=== PATIENT | male | born 1990 | race Caucasian/White ===

== ENCOUNTER 2016-11-09 10:20 | Emergency (ER) | payer OTHER ==
[~2016-11-09] VITALS: Ht 193 cm; Wt 152.0 kg
[~2016-11-09 10:20] MED LIST: FAMO-63 PO; ONDA4TAB10 SL
[2016-11-09 10:24] VITALS: BP 137/81
[2016-11-09] MEDS ORDERED: IBUPROFEN 800 MG TABLET. PO ONE (10:45)
--- NOTE | 2016-11-09 10:57 | EKG ---
[facility] [address] [place] [address] Test Date: 2016-11-09 Test Time: 10:27:19 Pat Name: TIERRA COREA Department: Room: Gender: M Rn Perioperative: : 1990 Requested By: JEROD MORLEY Order Number: [id number] Reading MD: Becca Mckeon Measurements Intervals [place] Rate: 64 P: 23 OR: 142 QRS: 9 QRSD: 102 T: -4 QT: 376 QTc: 392 Interpretive Statements SINUS RHYTHM NORMAL EKG Electronically Signed On 11-09-2016 19:46:49 CDT by Becca Mckeon
[2016-11-09 11:13] LABS: BASO # 0.1 x10^3/uL (0.0-0.2); BASO % 1 % (0-3); EOS % 6 % (0-3); HEMATOCRIT 44.6 % (39.0-53.0); HEMOGLOBIN 14.4 g/dL (13.0-17.5); LYMPH # 3.3 x10^3/uL (1.0-4.8); LYMPH % 41 % (24-48); MEAN CORPUSCULAR HEMOGLOBIN 29 pg (25-35); MEAN CORPUSCULAR HGB CONC 32 g/dL (31-37); MEAN CORPUSCULAR VOLUME 89 fL (79-100); MONO % 12 % (0-9); NEUT % 41 % (31-73); PLATELET COUNT 344 x10^3/uL (140-400); RED BLOOD COUNT 5.01 x10^6/uL (4.30-5.70); RED CELL DISTRIBUTION WIDTH 12.9 % (11.5-14.5); WHITE BLOOD COUNT 8.1 x10^3/uL (4.0-11.0)
[2016-11-09 11:23] LABS: CREATININE 0.9 mg/dL (0.7-1.3); GFR 102.8; POTASSIUM 4.2 mmol/L (3.5-5.1)
--- NOTE | 2016-11-09 11:27 | PHYS DOC ---
Past Medical History Past Medical History: No Pertinent History Additional Past Medical Histor: Lumbar Fx with bulging disc Past Surgical History: Other Additional Past Surgical Histo: left rotator cuff Alcohol Use: None Drug Use: None Adult General Chief Complaint Chief Complaint: CHEST PAIN HPI HPI Patient is a 26 year old male presents to the emergency department by POV with c/o left upper chest pain sharp in nature with pressure noted in the shoulder. Patient states the pain started at 0930 he states he was at work when the pain occurred. He denies Hx of HTN, denies any cardiac history, he denies SOA, diaphoresis. He states he did become nauseated but did not vomit. He denies drug use, or smoking hx. He does state their is a faimly hx of grandpa having SD at the age of 50. He states he took a tylenol 500 mg without relief. Review of Systems Review of Systems Constitutional: Denies fever or chills [] Eyes: Denies change in visual acuity, redness, or eye pain [] HENT: Denies nasal congestion or sore throat [] Respiratory: Denies cough or shortness of breath [] Cardiovascular: No additional information not addressed in HPI [] GI: Denies abdominal pain, nausea, vomiting, bloody stools or diarrhea [] : Denies dysuria or hematuria [] Musculoskeletal: Denies back pain or joint pain [] Integument: Denies rash or skin lesions [] Neurologic: Denies headache, focal weakness or sensory changes [] Endocrine: Denies polyuria or polydipsia [] Current Medications Current Medications Current Medications Medications (Trade) Dose Ordered Sig/[facility] Start Time Stop Time Status Last Admin Dose Admin Ibuprofen (Motrin) 800 mg 1X ONCE 11/09/16 10:45 11/09/16 10:46 DC 11/09/16 11:16 800 MG Allergies Allergies Allergies Coded Allergies Type Severity Reaction Last Updated Verified No Known Drug Allergies 01/22/15 No Physical Exam Physical Exam Constitutional: Well developed, well nourished, no acute distress, non-toxic appearance. [] HENT: Normocephalic, atraumatic, bilateral external ears normal, oropharynx moist, no oral exudates, nose normal. [] Eyes: PERRLA, EOMI, conjunctiva normal, no discharge. [] Neck: Normal range of motion, no tenderness, supple, no stridor. [] Cardiovascular:Heart rate regular rhythm, no murmur [] Lungs & Thorax: Bilateral breath sounds clear to auscultation [] Abdomen: Bowel sounds hypoactive, soft, no tenderness, no masses, no pulsatile masses. [] Skin: Warm, dry, no erythema, no rash. [] Back: No tenderness Extremities: No tenderness, no cyanosis, no clubbing, ROM intact, no edema. [] Neurologic: Alert and oriented X 3, normal motor function, normal sensory function, no focal deficits noted. [] Psychologic: Affect normal, judgement normal, mood normal. [] Current Patient Data Vital Signs Vital Signs Date Time Temp Pulse Resp B/P (MAP) Pulse Ox O2 Delivery O2 Flow Rate FiO2 11/09/16 10:24 98.8 68 18 137/81 (99) 98 Room Air 98.8 Lab Values Laboratory Tests Test 11/09/16 11:00 White Blood Count 8.1 x10^3/uL (4.0-11.0) Red Blood Count 5.01 x10^6/uL (4.30-5.70) Hemoglobin 14.4 g/dL (13.0-17.5) Hematocrit 44.6 % (39.0-53.0) Mean Corpuscular Volume 89 fL (79-100) Mean Corpuscular Hemoglobin 29 pg (25-35) Mean Corpuscular Hemoglobin Concent 32 g/dL (31-37) Red Cell Distribution Width 12.9 % (11.5-14.5) Platelet Count 344 x10^3/uL (140-400) Neutrophils (%) (Auto) 41 % (31-73) Lymphocytes (%) (Auto) 41 % (24-48) Monocytes (%) (Auto) 12 % (0-9) H Eosinophils (%) (Auto) 6 % (0-3) H Basophils (%) (Auto) 1 % (0-3) Neutrophils # (Auto) 3.3 x10^3uL (1.8-7.7) Lymphocytes # (Auto) 3.3 x10^3/uL (1.0-4.8) Monocytes # (Auto) 1.0 x10^3/uL (0.0-1.1) Eosinophils # (Auto) 0.5 x10^3/uL (0.0-0.7) Basophils # (Auto) 0.1 x10^3/uL (0.0-0.2) Sodium Level 141 mmol/L (136-145) Potassium Level 4.2 mmol/L (3.5-5.1) Chloride Level 105 mmol/L (98-107) Carbon Dioxide Level 31 mmol/L (21-32) Anion Gap 5 (6-14) L Blood Urea Nitrogen 10 mg/dL (8-26) Creatinine 0.9 mg/dL (0.7-1.3) Estimated GFR (Cockcroft-Gault) 102.8 BUN/Creatinine Ratio 11 (6-20) Glucose Level 99 mg/dL (70-99) Calcium Level 9.0 mg/dL (8.5-10.1) Total Bilirubin 0.5 mg/dL (0.2-1.0) Aspartate Amino Transferase (AST) 29 U/L (15-37) Alanine Aminotransferase (ALT) 58 U/L (16-63) Alkaline Phosphatase 95 U/L (46-116) Troponin I Quantitative < 0.017 ng/mL (0.000-0.055) Total Protein 7.6 g/dL (6.4-8.2) Albumin 3.8 g/dL (3.4-5.0) Albumin/Globulin Ratio 1.0 (1.0-1.7) Laboratory Tests 11/09/16 11:00 Laboratory Tests 11/09/16 11:00 EKG EKG [] Radiology/Procedures Radiology/Procedures [][facility] [address] [place] [address] IMAGING REPORT Signed PATIENT: TIERRA COREA ACCOUNT: [id number] : 1990 LOCATION: ER AGE: 26 SEX: M EXAM STATUS: REG ER ORD. PHYSICIAN: JEROD MORLEY APRN REASON: chest pain left upper chest PROCEDURE: PORTABLE CHEST 1V Indication chest pain. A single view of the chest was obtained and is compared to an examination over 10 years earlier. Heart size and pulmonary vessels are normal. The lungs are clear. No acute or significant finding is seen. IMPRESSION: Normal single view of the chest DICTATED and SIGNED BY: DAVID JENSEN MD DATE: 11/09/16 1157 CC: JEROD MORLEY APRN; GERMAN NARVAEZ; NON,STAFF ~ Course & Med Decision Making Course & Med Decision Making Pertinent Labs and Imaging studies reviewed. (See chart for details) CBC, CMP, troponin, chest x-ray are all within normal limits. Patient was provided with test results. He'll be discharged home in stable condition with recommendations for ibuprofen 800 mg every 8 hours for pain and discomfort. He may also use warm moist pack to the chest wall area. Patient will be encouraged follow-up with primary care physician in the next week. Signs symptoms to return back to emergency department as been provided. Patient agrees with discharge instructions treatment regimens and follow-up recommendations. [] Dragon Disclaimer Dragon Disclaimer This electronic medical record was generated, in whole or in part, using a voice recognition dictation system. Departure Departure Impression: Primary Impression: Chest wall pain Disposition: HOME, SELF-CARE Condition: STABLE Referrals: GERMAN NARVAEZ (PCP) Patient Instructions: Chest Wall Pain, [id number] Additional Instructions: You have been evaluated for left upper chest wall pain. Your lab results were all within normal limits her chest x-ray was normal. Ibuprofen 800 mg every 8 hours with food stop taking few develop an upset stomach. Warm moist packs to the left upper chest wall area several times a day. Follow-up to primary care physician in one week. Return back to emergency prior signs symptoms of become worse. JEROD MORLEY APRN Nov 09, 2016 11:27
[2016-11-09 11:29] LABS: ALBUMIN 3.8 g/dL (3.4-5.0); TOTAL BILIRUBIN 0.5 mg/dL (0.2-1.0); TOTAL PROTEIN 7.6 g/dL (6.4-8.2)
--- NOTE | 2016-11-09 12:00 | RAD ---
Indication chest pain. A single view of the chest was obtained and is compared to an examination over 10 years earlier. Heart size and pulmonary vessels are normal. The lungs are clear. No acute or significant finding is seen. IMPRESSION: Normal single view of the chest
== END 2016-11-09 13:03 | disposition home or self-care (01) ==
LOC: ER 10:20
DX: R07.89 Other chest pain (principal); R11.0 Nausea
CPT/HCPCS: 36415; 71010; 80053; 84484; 85027; 93005; 99285-25

== ENCOUNTER 2018-08-29 11:59 | Emergency (ER) | payer OTHER ==
[~2018-08-29] VITALS: Ht 193 cm; Wt 167.8 kg
[2018-08-29 12:44] LABS: BILIRUBIN,URINE NEGATIVE (NEG); CLARITY,URINE CLEAR; COLOR,URINE YELLOW; NITRITE,URINE NEGATIVE (NEG); PH,URINE 6.5; PROTEIN,URINE NEGATIVE (NEG-TRACE)
[2018-08-29 12:47] LABS: BARBITURATES NEG (NEG); BENZODIAZEPINES NEG (NEG); CANNABINOIDS NEG (NEG); COCAINE NEG (NEG); METHADONE NEG (NEG); OPIATES NEG (NEG); PHENCYCLIDINE NEG (NEG)
[2018-08-29 12:48] LABS: BASO % 1 % (0-3); EOS # 0.4 x10^3/uL (0.0-0.7); EOS % 5 % (0-3); HEMATOCRIT 45.6 % (39.0-53.0); HEMOGLOBIN 14.7 g/dL (13.0-17.5); LYMPH # 3.3 x10^3/uL (1.0-4.8); LYMPH % 46 % (24-48); MEAN CORPUSCULAR HEMOGLOBIN 28 pg (25-35); MEAN CORPUSCULAR HGB CONC 32 g/dL (31-37); MEAN CORPUSCULAR VOLUME 87 fL (79-100); MONO # 0.7 x10^3/uL (0.0-1.1); MONO % 10 % (0-9); NEUT # 2.9 x10^3uL (1.8-7.7); NEUT % 39 % (31-73); PLATELET COUNT 376 x10^3/uL (140-400); RED BLOOD COUNT 5.25 x10^6/uL (4.30-5.70); RED CELL DISTRIBUTION WIDTH 13.2 % (11.5-14.5); WHITE BLOOD COUNT 7.3 x10^3/uL (4.0-11.0)
[2018-08-29 12:58] LABS: SQUAMOUS EPITHELIAL CELL,UR FEW /LPF
[2018-08-29 12:59] LABS: BACTERIA,URINE 0 /HPF (0-FEW)
[2018-08-29] MEDS ORDERED: ONDANSETRON PF 4 MG/2 ML VIAL. IV ONE (13:00)
[2018-08-29 13:03] LABS: CALCIUM 9.5 mg/dL (8.5-10.1); CREATININE 0.9 mg/dL (0.7-1.3); GFR 101.2; POTASSIUM 4.1 mmol/L (3.5-5.1)
[2018-08-29 13:08] LABS: ALBUMIN 3.8 g/dL (3.4-5.0); ALBUMIN/GLOBULIN RATIO 1.1 (1.0-1.7); TOTAL BILIRUBIN 0.6 mg/dL (0.2-1.0); TOTAL PROTEIN 7.4 g/dL (6.4-8.2)
[2018-08-29 13:11] LABS: AMPHETAMINE/METHAMPHETAMINE NEG (NEG)
[2018-08-29] MEDS ORDERED: KETOROLAC 30 MG/ML VIAL. IV ONE (13:15)
[2018-08-29] MEDS ORDERED: IV NORMAL SALINE 1000ML BAG 1,000 ML IV ONE (13:15)
--- NOTE | 2018-08-29 13:40 | RAD ---
CT HEAD WO CONTRAST History: dizzy Comparison: None. Technique: Noncontrast CT imaging was performed of the head. Exposure: One or more of the following individualized dose reduction techniques were utilized for this examination: 1. Automated exposure control 2. Adjustment of the mA and/or kV according to patient size 3. Use of iterative reconstruction technique. Findings: No acute extra-axial or parenchymal hemorrhage is identified. There is no significant intra-axial mass effect, midline shift, or extra-axial fluid collection. The dale-white differentiation of the major vascular territories is preserved. The ventricles, sulci, and cisterns are within normal limits in size and configuration. The mastoid air cells and the visualized paranasal sinuses are aerated. No acute calvarial abnormality is identified. Impression: 1. No acute intracranial abnormality is identified. Electronically signed by: Noe Moran MD (08/29/2018 1:37 PM) [facility]
[2018-08-29 14:04] LABS: INFLUENZA A PATIENT NEGATIVE (NEGATIVE); INFLUENZA B PATIENT NEGATIVE (NEGATIVE)
[2018-08-29 14:30] VITALS: BP 154/89
[2018-08-29] MEDS ORDERED: cefTRIAXone IV Push 1 GM VIAL. IVP ONE (14:30)
[2018-08-29] MEDS ORDERED: AMOX875T PO (14:41)
[2018-08-29] MEDS ORDERED: TRAM50TA PO (14:42)
--- NOTE | 2018-08-29 14:43 | PHYS DOC ---
Past Medical History Past Medical History: Other Additional Past Medical Histor: Lumbar Fx with bulging disc Past Surgical History: Other Additional Past Surgical Histo: left rotator cuff Alcohol Use: None Drug Use: None Adult General Chief Complaint Chief Complaint: DIZZY/LIGHT HEADED HPI HPI Patient is a 28 year old male who presents with multiple complaints. He states he has dental pain, headache and now chest pain. He denies this being the worst headache of his life. He has not seen a dentist. Review of Systems Review of Systems Constitutional: Denies fever or chills [] Eyes: Denies change in visual acuity, redness, or eye pain [] HENT: See HPI Respiratory: Denies cough or shortness of breath [] Cardiovascular: No additional information not addressed in HPI [] GI: Denies abdominal pain, nausea, vomiting, bloody stools or diarrhea [] : Denies dysuria or hematuria [] Musculoskeletal: Denies back pain or joint pain [] Integument: Denies rash or skin lesions [] Neurologic: See HPI Endocrine: Denies polyuria or polydipsia [] All other systems were reviewed and found to be within normal limits, except as documented in this note. Current Medications Current Medications Current Medications Medications (Trade) Dose Ordered Sig/[facility] Start Time Stop Time Status Last Admin Dose Admin Ceftriaxone Sodium (Rocephin) 1 gm 1X ONCE 08/29/18 14:30 08/29/18 14:31 DC 08/29/18 14:47 1 GM Ketorolac Tromethamine (Toradol 30mg Vial) 30 mg 1X ONCE 08/29/18 13:15 08/29/18 13:16 DC 08/29/18 13:20 30 MG Ondansetron HCl (Zofran) 4 mg 1X ONCE 08/29/18 13:00 08/29/18 13:01 DC 08/29/18 12:57 4 MG Sodium Chloride 1,000 ml @ 1,000 mls/hr 1X ONCE 08/29/18 13:15 08/29/18 14:14 DC 08/29/18 13:19 1,000 MLS/HR Allergies Allergies Allergies Coded Allergies Type Severity Reaction Last Updated Verified No Known Drug Allergies 01/22/15 No Physical Exam Physical Exam Constitutional: Well developed, well nourished, no acute distress, non-toxic appearance. [] HENT: Normocephalic, atraumatic, bilateral external ears normal, oropharynx moist, no oral exudates, nose normal. [] Eyes: PERRLA, EOMI, conjunctiva normal, no discharge. [] Neck: Normal range of motion, no tenderness, supple, no stridor. [] Cardiovascular:Heart rate regular rhythm, no murmur [] Lungs & Thorax: Bilateral breath sounds clear to auscultation [] Abdomen: Bowel sounds normal, soft, no tenderness, no masses, no pulsatile masses. [] Skin: Warm, dry, no erythema, no rash. [] Back: No tenderness, no CVA tenderness. [] Extremities: No tenderness, no cyanosis, no clubbing, ROM intact, no edema. [] Neurologic: Alert and oriented X 3, normal motor function, normal sensory function, no focal deficits noted. [] Psychologic: Affect normal, judgement normal, mood normal. [] Current Patient Data Vital Signs Lab Values Laboratory Tests Test 08/29/18 12:28 08/29/18 12:37 08/29/18 13:15 08/29/18 13:21 Urine Collection Type Unknown Urine Color Yellow Urine Clarity Clear Urine pH 6.5 Urine Specific [place] 1.015 Urine Protein Negative mg/dL (NEG-TRACE) Urine Glucose (UA) Negative mg/dL (NEG) Urine Ketones (Stick) Negative mg/dL (NEG) Urine Blood Trace (NEG) Urine Nitrite Negative (NEG) Urine Bilirubin Negative (NEG) Urine Urobilinogen Dipstick 1.0 mg/dL (0.2 mg/dL) Urine Leukocyte Esterase Negative (NEG) Urine RBC 3-5 /HPF (0-2) Urine WBC 1-4 /HPF (0-4) Urine Squamous Epithelial Cells Few /LPF Urine Bacteria 0 /HPF (0-FEW) Urine Mucus Slight /LPF Urine Opiates Screen Neg (NEG) Urine Methadone Screen Neg (NEG) Urine Barbiturates Neg (NEG) Urine Phencyclidine Screen Neg (NEG) Urine Amphetamine/Methamphetamine Neg (NEG) Urine Benzodiazepines Screen Neg (NEG) Urine Cocaine Screen Neg (NEG) Urine Cannabinoids Screen Neg (NEG) Urine Ethyl Alcohol Neg (NEG) White Blood Count 7.3 x10^3/uL (4.0-11.0) Red Blood Count 5.25 x10^6/uL (4.30-5.70) Hemoglobin 14.7 g/dL (13.0-17.5) Hematocrit 45.6 % (39.0-53.0) Mean Corpuscular Volume 87 fL (79-100) Mean Corpuscular Hemoglobin 28 pg (25-35) Mean Corpuscular Hemoglobin Concent 32 g/dL (31-37) Red Cell Distribution Width 13.2 % (11.5-14.5) Platelet Count 376 x10^3/uL (140-400) Neutrophils (%) (Auto) 39 % (31-73) Lymphocytes (%) (Auto) 46 % (24-48) Monocytes (%) (Auto) 10 % (0-9) H Eosinophils (%) (Auto) 5 % (0-3) H Basophils (%) (Auto) 1 % (0-3) Neutrophils # (Auto) 2.9 x10^3uL (1.8-7.7) Lymphocytes # (Auto) 3.3 x10^3/uL (1.0-4.8) Monocytes # (Auto) 0.7 x10^3/uL (0.0-1.1) Eosinophils # (Auto) 0.4 x10^3/uL (0.0-0.7) Basophils # (Auto) 0.0 x10^3/uL (0.0-0.2) Sodium Level 140 mmol/L (136-145) Potassium Level 4.1 mmol/L (3.5-5.1) Chloride Level 102 mmol/L (98-107) Carbon Dioxide Level 30 mmol/L (21-32) Anion Gap 8 (6-14) Blood Urea Nitrogen 10 mg/dL (8-26) Creatinine 0.9 mg/dL (0.7-1.3) Estimated GFR (Cockcroft-Gault) 101.2 BUN/Creatinine Ratio 11 (6-20) Glucose Level 109 mg/dL (70-99) H Calcium Level 9.5 mg/dL (8.5-10.1) Total Bilirubin 0.6 mg/dL (0.2-1.0) Aspartate Amino Transferase (AST) 23 U/L (15-37) Alanine Aminotransferase (ALT) 42 U/L (16-63) Alkaline Phosphatase 99 U/L (46-116) Total Protein 7.4 g/dL (6.4-8.2) Albumin 3.8 g/dL (3.4-5.0) Albumin/Globulin Ratio 1.1 (1.0-1.7) Influenza Type A Antigen Negative (NEGATIVE) Influenza Type B Antigen Negative (NEGATIVE) Group A Streptococcus Rapid Negative (NEGATIVE) Laboratory Tests 08/29/18 12:37 Laboratory Tests 08/29/18 12:37 Microbiology 08/29/18 Throat Culture - Final, Complete 08/29/18 - Final, Complete EKG EKG [] Radiology/Procedures Radiology/Procedures []PATIENT: TIERRA COREAACCOUNT: [id number]#: [id number] : 1990 LOCATION: ER AGE: 28 SEX: M EXAM STATUS: PRE ER ORD. PHYSICIAN: KHADAR RIVERA APRN REASON: dizzy PROCEDURE: CT HEAD WO CONTRAST CT HEAD WO CONTRAST History: dizzy Comparison: None. Technique: Noncontrast CT imaging was performed of the head. Exposure: One or more of the following individualized dose reduction techniques were utilized for this examination: 1. Automated exposure control 2. Adjustment of the mA and/or kV according to patient size 3. Use of iterative reconstruction technique. Findings: No acute extra-axial or parenchymal hemorrhage is identified. There is no significant intra-axial mass effect, midline shift, or extra-axial fluid collection. The dale-white differentiation of the major vascular territories is preserved. The ventricles, sulci, and cisterns are within normal limits in size and configuration. The mastoid air cells and the visualized paranasal sinuses are aerated. No acute calvarial abnormality is identified. Impression: 1. No acute intracranial abnormality is identified. Electronically signed by: Huber Reno MD (08/29/2018 1:37 PM) [facility] DICTATED and SIGNED BY: HUBER RENO MD DATE: 08/29/18 2254 Course & Med Decision Making Course & Med Decision Making Pertinent Labs and Imaging studies reviewed. (See chart for details) []The patient's CT and labwork was negative for acute causes of his symptoms. He needs to follow up with a dentist. Dragon Disclaimer Dragon Disclaimer This electronic medical record was generated, in whole or in part, using a voice recognition dictation system. Departure Departure Impression: Primary Impression: Dental infection Additional Impression: Headache Disposition: 01 HOME, SELF-CARE Condition: STABLE Referrals: GERMAN NARVAEZ (PCP) Patient Instructions: Dental Caries, General Headache Without Cause Additional Instructions: Take the medication as directed. Follow-up with your dentist at an earliest available appointment. If worsening return to the emergency department immediately. Scripts Tramadol Hcl (TRAMADOL HCL) 50 Mg Tablet 50 MG PO DAILY PRN for PAIN, #10 TAB 0 Refills Prov: KHADAR RIVERA APRN 08/29/18 Amoxicillin (AMOXICILLIN) 875 Mg Tablet 1 TAB PO BID for dental infection, #20 TAB Prov: KHADAR RIVERA APRN 08/29/18 Problem Qualifiers KHADAR RIVERA APRN Aug 29, 2018 14:43
--- NOTE | 2018-08-30 09:39 | EKG ---
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
== END 2018-08-29 14:45 | disposition home or self-care (01) ==
LOC: ER 11:59
DX: R51 Headache (principal); K04.7 Periapical abscess without sinus; R42 Dizziness and giddiness
CPT/HCPCS: 36415; 70450; 80053; 80307; 81001; 85025; 87070; 87804; 87880; 93005; 96361; 96374; 96375; 99284; J0696; J1885; J2405; J7030

== ENCOUNTER 2018-10-17 16:49 | Emergency (ER) | payer OTHER, SELFPAY ==
[~2018-10-17] VITALS: Ht 195.6 cm; Wt 166.5 kg
[~2018-10-17 16:49] MED LIST changes: +AMOX875T PO; +TRAM50TA PO
[2018-10-17] MEDS ORDERED: IV NORMAL SALINE 1000ML BAG 1,000 ML IV SCH (17:25)
[2018-10-17] MEDS ORDERED: ONDANSETRON PF 4 MG/2 ML VIAL. IV ONE (17:30)
[2018-10-17] MEDS ORDERED: KETOROLAC 30 MG/ML VIAL. IV ONE (17:30)
--- NOTE | 2018-10-17 17:36 | PHYS DOC ---
Past Medical History Past Medical History: Other Additional Past Medical Histor: Lumbar Fx with bulging disc, MENINGITIS (ELIDA ZARATE MD) Past Surgical History: Other Additional Past Surgical Histo: left rotator cuff (ELIDA ZARATE MD) Alcohol Use: None Drug Use: None (ELIDA ZARATE MD) Adult General Chief Complaint Chief Complaint: DIZZY/LIGHT HEADED HPI HPI Patient is a 28 year old male who presents with complaining of dizziness and vomiting and headache and generalized weakness. Patient complaining of sudden onset of generalized weakness and dizziness 3 hours ago with 8 episodes of nonbloody vomiting and generalized abdominal pain. Patient also complaining of bilateral frontal headache without neck pain, fever and chills, chest pain, shortness of breath, diarrhea and constipation, urinary symptoms, sick contact, focal neuro deficit, recent urinary symptom, tinnitus or ear problems. Patient states he had the same problem about 1 month ago when he was in this emergency room. (ELIDA ZARATE MD) Review of Systems Review of Systems Constitutional: Denies fever or chills [] Eyes: Denies change in visual acuity, redness, or eye pain [] HENT: Denies nasal congestion or sore throat [] Respiratory: Denies cough or shortness of breath [] Cardiovascular: No additional information not addressed in HPI [] GI: Reports abdominal pain, nausea, vomiting, denies bloody stools or diarrhea [] : Denies dysuria or hematuria [] Musculoskeletal: Denies back pain or joint pain [] Integument: Denies rash or skin lesions [] Neurologic: Reports generalized weakness, dizziness, headache, denies focal weakness or sensory changes [] Endocrine: Denies polyuria or polydipsia [] All other systems were reviewed and found to be within normal limits, except as documented in this note. (ELIDA ZARATE MD) Current Medications Current Medications Current Medications Medications (Trade) Dose Ordered Sig/Dinorah Start Time Stop Time Status Last Admin Dose Admin Ketorolac Tromethamine (Toradol 30mg Vial) 30 mg 1X ONCE 10/17/18 17:30 10/17/18 17:31 DC 10/17/18 17:54 30 MG Ondansetron HCl (Zofran) 4 mg 1X ONCE 10/17/18 17:30 5/18/19 17:31 DC 10/17/18 17:53 4 MG Sodium Chloride 1,000 ml @ 1,000 mls/hr Q1H 10/17/18 17:25 10/17/18 18:24 DC 10/17/18 17:46 1,000 MLS/HR (OMID LESTER DO) Allergies Allergies Allergies Coded Allergies Type Severity Reaction Last Updated Verified No Known Drug Allergies 01/22/15 No (OMID LESTER DO) Physical Exam Physical Exam Constitutional: Well nourished, mild distress, non-toxic appearance, morbidly obese. [] HENT: Normocephalic, atraumatic, oropharynx dry, no oral exudates, nose normal. [] Eyes: PERRLA, EOMI, conjunctiva normal, no discharge. [] Neck: Normal range of motion, no tenderness, supple, no stridor 1 no neck rigidity or meningeal sign. [] Cardiovascular:Heart rate regular rhythm, no murmur [] Lungs & Thorax: Bilateral breath sounds clear to auscultation [] Abdomen: Bowel sounds normal, soft, no tenderness, no masses, no pulsatile masses. [] Skin: Warm, dry, no erythema, no rash. [] Back: No tenderness, no CVA tenderness. [] Extremities: No tenderness, no cyanosis, no clubbing, ROM intact, no edema. [] Neurologic: Alert and oriented X 3, normal motor function, normal sensory function, no focal deficits noted. [] Psychologic: Affect normal, judgement normal, mood normal. [] (ELIDA ZARATE MD) Physical Exam Constitutional: Well nourished, non-toxic appearance, obese. [] Eyes: PERRL, EOMI, conjunctiva normal, no discharge. [] Neck: Normal range of motion, no tenderness, supple, no meningeal signs Cardiovascular: Heart rate normal with regular rhythm Lungs & Thorax: Bilateral breath sounds clear to auscultation [] Abdomen: Soft, mild epigastric and RUQ tenderness Neurologic: Alert and oriented X 3, normal motor function, normal sensory function, no focal deficits noted. [] (OMID LESTER DO) Current Patient Data Vital Signs Vital Signs Date Time Temp Pulse Resp B/P (MAP) Pulse Ox O2 Delivery O2 Flow Rate FiO2 10/17/18 17:10 98.4 66 16 144/75 (98) 96 Room Air 98.4 (LESTER,[facility] DO) Lab Values Laboratory Tests Test 10/17/18 17:02 10/17/18 17:40 10/17/18 19:13 Glucose (Fingerstick) 94 mg/dL (70-99) White Blood Count 8.9 x10^3/uL (4.0-11.0) Red Blood Count 5.10 x10^6/uL (4.30-5.70) Hemoglobin 14.4 g/dL (13.0-17.5) Hematocrit 44.8 % (39.0-53.0) Mean Corpuscular Volume 88 fL (79-100) Mean Corpuscular Hemoglobin 28 pg (25-35) Mean Corpuscular Hemoglobin Concent 32 g/dL (31-37) Red Cell Distribution Width 13.1 % (11.5-14.5) Platelet Count 341 x10^3/uL (140-400) Neutrophils (%) (Auto) 62 % (31-73) Lymphocytes (%) (Auto) 23 % (24-48) L Monocytes (%) (Auto) 10 % (0-9) H Eosinophils (%) (Auto) 5 % (0-3) H Basophils (%) (Auto) 1 % (0-3) Neutrophils # (Auto) 5.6 x10^3uL (1.8-7.7) Lymphocytes # (Auto) 2.0 x10^3/uL (1.0-4.8) Monocytes # (Auto) 0.9 x10^3/uL (0.0-1.1) Eosinophils # (Auto) 0.4 x10^3/uL (0.0-0.7) Basophils # (Auto) 0.0 x10^3/uL (0.0-0.2) PTT 30 SEC (24-38) Sodium Level 139 mmol/L (136-145) Potassium Level 4.3 mmol/L (3.5-5.1) Chloride Level 103 mmol/L (98-107) Carbon Dioxide Level 27 mmol/L (21-32) Anion Gap 9 (6-14) Blood Urea Nitrogen 13 mg/dL (8-26) Creatinine 1.1 mg/dL (0.7-1.3) Estimated GFR (Cockcroft-Gault) 80.3 BUN/Creatinine Ratio 12 (6-20) Glucose Level 124 mg/dL (70-99) H Lactic Acid Level 1.5 mmol/L (0.4-2.0) Calcium Level 9.4 mg/dL (8.5-10.1) Total Bilirubin 0.5 mg/dL (0.2-1.0) Aspartate Amino Transferase (AST) 26 U/L (15-37) Alanine Aminotransferase (ALT) 41 U/L (16-63) Alkaline Phosphatase 100 U/L (46-116) Creatine Kinase 209 U/L (39-308) Troponin I Quantitative < 0.017 ng/mL (0.000-0.055) Total Protein 8.0 g/dL (6.4-8.2) Albumin 3.9 g/dL (3.4-5.0) Albumin/Globulin Ratio 1.0 (1.0-1.7) Lipase 42 U/L (73-393) L Ethyl Alcohol Level < 10 mg/dL (0-10) Urine Collection Type Unknown Urine Color Yellow Urine Clarity Clear Urine pH 7.0 Urine Specific [place] 1.015 Urine Protein Negative mg/dL (NEG-TRACE) Urine Glucose (UA) Negative mg/dL (NEG) Urine Ketones (Stick) Negative mg/dL (NEG) Urine Blood Negative (NEG) Urine Nitrite Negative (NEG) Urine Bilirubin Negative (NEG) Urine Urobilinogen Dipstick 1.0 mg/dL (0.2 mg/dL) Urine Leukocyte Esterase Negative (NEG) Urine RBC Occ /HPF (0-2) Urine WBC 0 /HPF (0-4) Urine Squamous Epithelial Cells Occ /LPF Urine Bacteria 0 /HPF (0-FEW) Urine Opiates Screen Neg (NEG) Urine Methadone Screen Neg (NEG) Urine Barbiturates Neg (NEG) Urine Phencyclidine Screen Neg (NEG) Urine Amphetamine/Methamphetamine Neg (NEG) Urine Benzodiazepines Screen Neg (NEG) Urine Cocaine Screen Neg (NEG) Urine Cannabinoids Screen Neg (NEG) Urine Ethyl Alcohol Neg (NEG) Laboratory Tests 10/17/18 17:40 Laboratory Tests 10/17/18 17:40 (OMID LESTER DO) EKG EKG EKG interpreted by me. EKG at 1704 showed normal sinus rhythm at rate of 65, normal VT and QT intervals, poor R-wave progress in anteroseptal leads, no acute ST and T-wave abnormalities. (ELIDA ZARATE MD) Radiology/Procedures Radiology/Procedures [] (ELIDA ZARATE MD) Radiology/Procedures PROCEDURE: ABDOMEN COMPLETE INDICATION : Abdomen pain, vomiting and weakness COMPARISON: None TECHNIQUE: Multiple ultrasound images obtained through the abdomen in grayscale and color. FINDINGS: Liver: Prominent in size. Portions not well seen secondary to overlying structures. Echogenic appearance. Gallbladder: Only a portion seen with a portion wall at upper limits of normal in size. Definite stones not seen but regions are obscured and not well evaluated. IVC: Largely obscured by bowel gas Common Bile Duct: Not dilated. Pancreas: Largely obscured by bowel gas Right Kidney: Poorly seen secondary to overlying structures obscuring The spleen is largely obscured. Left kidney is not well evaluated. IMPRESSION: 1. Limited examination secondary to obscuration from overlying soft tissues. Liver appears echogenic. Can be seen with fatty infiltration. Large portions the liver are not seen on this exam. Electronically signed by: Antwon Stephenson MD (10/17/2018 6:32 PM) [facility] (OMID LESTER DO) Course & Med Decision Making Course & Med Decision Making Pertinent Labs and Imaging studies are pending. Evaluation of patient in ER showed 28-year-old male patient with complaining of sudden onset of dizziness, generalized weakness, headache, multiple episodes of nonbloody vomiting and abdominal pain. Patient did not have meningeal sign. Labs and ultrasound of gallbladder is pending. Sign out given to at 1800 for further evaluation and final disposition. Discussed current findings and plan with patient and family, who acknowledge understanding and agreement. (ELIDA ZARATE MD) Course & Med Decision Making 1800- Sign out received from Dr. Zarate for patient with multiple complaints. Symptomatic treatment previously provided. Labs reviewed. US without acute sign of cholelithiasis or right hydronephrosis. Patient seen and evaluated by myself. Patient stable for discharge with outpatient follow-up with PCP. Discussed findings and plan with patient and family, who acknowledge understanding and agreement. (OMID LESTER DO) Dragon Disclaimer Dragon Disclaimer This electronic medical record was generated, in whole or in part, using a voice recognition dictation system. (ELIDA ZARATE MD) Departure Departure Impression: Primary Impression: Nausea and vomiting Additional Impressions: Weakness Abdominal pain Headache Disposition: 01 HOME, SELF-CARE Condition: STABLE Referrals: GERMAN NARVAEZ (PCP) CHARO GONZALEZ MD Patient Instructions: Abdominal Pain (Nonspecific), Headache, FAQs, Nausea and Vomiting, Eagp-hl-[id number] Scripts Butalb/Acetaminophen/Caffeine ([id number] 50-325-40) 1 Each Tablet 1 EACH PO Q6HRS PRN for HEADACHE, #14 TAB Prov: OMID LESTER DO 10/17/18 Hyoscyamine Sulfate (LEVSIN-SL) 0.125 Mg Tab.subl 1 TAB SL PRN Q4HRS PRN for PAIN, #20 TAB Prov: OMID LESTER DO 10/17/18 Ondansetron (ONDANSETRON ODT) 4 Mg Tab.rapdis 1 TAB PO PRN Q6-8HRS PRN for NAUSEA, #16 TAB Prov: OMID LESTER DO 10/17/18 Famotidine (PEPCID) 20 Mg Tablet 20 MG PO BID, #14 TAB Prov: OMID LESTER DO 10/17/18 Problem Qualifiers Primary Impression: Nausea and vomiting Vomiting type: unspecified Vomiting Intractability: unspecified Qualified Codes: R11.2 - Nausea with vomiting, unspecified Additional Impressions: Abdominal pain Abdominal location: right upper quadrant Qualified Codes: R10.11 - Right upper quadrant pain Headache Headache type: unspecified Headache chronicity pattern: acute headache Intractability: not intractable Qualified Codes: R51 - Headache ELIDA ZARATE MD October 17, 2018 17:36 OMID LESTER DO October 17, 2018 18:45
[2018-10-17 18:02] LABS: BASO % 1 % (0-3); EOS # 0.4 x10^3/uL (0.0-0.7); EOS % 5 % (0-3); HEMATOCRIT 44.8 % (39.0-53.0); HEMOGLOBIN 14.4 g/dL (13.0-17.5); LYMPH % 23 % (24-48); MEAN CORPUSCULAR HEMOGLOBIN 28 pg (25-35); MEAN CORPUSCULAR HGB CONC 32 g/dL (31-37); MEAN CORPUSCULAR VOLUME 88 fL (79-100); MONO # 0.9 x10^3/uL (0.0-1.1); MONO % 10 % (0-9); NEUT # 5.6 x10^3uL (1.8-7.7); NEUT % 62 % (31-73); PLATELET COUNT 341 x10^3/uL (140-400); RED CELL DISTRIBUTION WIDTH 13.1 % (11.5-14.5); WHITE BLOOD COUNT 8.9 x10^3/uL (4.0-11.0)
[2018-10-17 18:14] LABS: CALCIUM 9.4 mg/dL (8.5-10.1); CREATININE 1.1 mg/dL (0.7-1.3); GFR 80.3; POTASSIUM 4.3 mmol/L (3.5-5.1)
[2018-10-17 18:28] LABS: ALBUMIN 3.9 g/dL (3.4-5.0); TOTAL BILIRUBIN 0.5 mg/dL (0.2-1.0)
--- NOTE | 2018-10-17 18:34 | RAD ---
INDICATION : Abdomen pain, vomiting and weakness COMPARISON: None TECHNIQUE: Multiple ultrasound images obtained through the abdomen in grayscale and color. FINDINGS: Liver: Prominent in size. Portions not well seen secondary to overlying structures. Echogenic appearance. Gallbladder: Only a portion seen with a portion wall at upper limits of normal in size. Definite stones not seen but regions are obscured and not well evaluated. IVC: Largely obscured by bowel gas Common Bile Duct: Not dilated. Pancreas: Largely obscured by bowel gas Right Kidney: Poorly seen secondary to overlying structures obscuring The spleen is largely obscured. Left kidney is not well evaluated. IMPRESSION: 1. Limited examination secondary to obscuration from overlying soft tissues. Liver appears echogenic. Can be seen with fatty infiltration. Large portions the liver are not seen on this exam. Electronically signed by: Antwon Stephenson MD (10/17/2018 6:32 PM) [facility]
[2018-10-17] MEDS ORDERED: FAMO-63 PO (18:43)
[2018-10-17] MEDS ORDERED: HYOS0.1265 SL (18:43)
[2018-10-17] MEDS ORDERED: BUTA1TAB23 PO (18:43)
[2018-10-17] MEDS ORDERED: ONDA4TAB12 PO (18:43)
[2018-10-17 19:23] LABS: BILIRUBIN,URINE NEGATIVE (NEG); CLARITY,URINE CLEAR; COLOR,URINE YELLOW; NITRITE,URINE NEGATIVE (NEG); PROTEIN,URINE NEGATIVE (NEG-TRACE)
[2018-10-17 19:28] LABS: RBC,URINE OCC /HPF (0-2)
[2018-10-17 19:29] LABS: BACTERIA,URINE 0 /HPF (0-FEW); BARBITURATES NEG (NEG); BENZODIAZEPINES NEG (NEG); CANNABINOIDS NEG (NEG); COCAINE NEG (NEG); METHADONE NEG (NEG); OPIATES NEG (NEG); PHENCYCLIDINE NEG (NEG); SQUAMOUS EPITHELIAL CELL,UR OCC /LPF; WBC,URINE 0 /HPF (0-4)
[2018-10-17 19:30] LABS: AMPHETAMINE/METHAMPHETAMINE NEG (NEG)
[2018-10-17 20:02] VITALS: BP 155/93
--- NOTE | 2018-10-18 11:13 | EKG ---
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
== END 2018-10-17 20:10 | disposition home or self-care (01) ==
LOC: ER 16:49
DX: R11.2 Nausea with vomiting, unspecified (principal); R42 Dizziness and giddiness; R51 Headache; R53.1 Weakness; R10.84 Generalized abdominal pain
CPT/HCPCS: 36415; 76700; 80053; 80307; 81001; 82550; 82962; 83605; 83690; 84484; 85025; 85730; 93005; 96361; 96374; 96375; 99285; G0480; J1885; J2405; J7030

== ENCOUNTER 2018-10-25 15:29 | Emergency (ER) | payer SELFPAY ==
[~2018-10-25] VITALS: Ht 195.6 cm; Wt 168.3 kg
[~2018-10-25 15:29] MED LIST changes: +BUTA1TAB23 PO; +HYOS0.1265 SL; +ONDA4TAB12 PO
[2018-10-25 15:35] VITALS: BP 162/94
[2018-10-25] MEDS ORDERED: ACETAMINOPHEN 500 MG TABLET PO ONE (16:00)
[2018-10-25] MEDS ORDERED: PENICILLIN G BENZATHINE LA 1,200,000 UNIT/2 ML DISP.SYRIN. IM ONE (16:00)
[2018-10-25] MEDS ORDERED: predniSONE 10 MG TABLET PO ONE (16:00)
[2018-10-25] MEDS ORDERED: PRED50TA PO (16:56)
--- NOTE | 2018-10-25 16:56 | PHYS DOC ---
Past Medical History Past Medical History: Other Additional Past Medical Histor: Lumbar Fx with bulging disc, MENINGITIS Past Surgical History: Other Additional Past Surgical Histo: left rotator cuff Alcohol Use: None Drug Use: None Adult General Chief Complaint Chief Complaint: SORE THROAT HPI HPI 28-year-old male presents to ER via POV for complaints of sore throat. He reports he feels similar to last week when he was evaluated in the ER and had labs/tests done. He reports his appetite has still been decreased but has been able to drink without any nausea or vomiting. He reports he has felt feverish denies checking his temperature. Reports over the past couple of days his sore throat has worsened. Patient denies difficulty swallowing. He reports he has had intermittent chest pain for quite some time and was evaluated last week for that denies acute change in symptoms. Patient denies any [id number]-[id number] medications today reporting he did take ibuprofen yesterday. Review of Systems Review of Systems Constitutional: Reports feeling feverish- denies fever. Eyes: Denies change in visual acuity, redness, or eye pain [] HENT: Denies nasal congestion. Reports sore throat- denies difficulty swallowing Respiratory: Denies cough or shortness of breath [] Cardiovascular: No additional information not addressed in HPI [] GI: Denies abdominal pain, nausea, vomiting, bloody stools or diarrhea [] : Denies dysuria or hematuria [] Musculoskeletal: Denies back pain or joint pain [] Integument: Denies rash or skin lesions [] Neurologic: Denies headache, focal weakness or sensory changes. Denies dizziness Endocrine: Denies polyuria or polydipsia [] All other systems were reviewed and found to be within normal limits, except as documented in this note. Current Medications Current Medications Current Medications Medications (Trade) Dose Ordered Sig/Dinorah Start Time Stop Time Status Last Admin Dose Admin Acetaminophen (Tylenol) 1,000 mg 1X ONCE 10/25/18 16:00 10/25/18 16:01 DC 10/25/18 16:11 1,000 MG Penicillin G Benzathine (Bicillin L-A) 1,200,000 unit 1X ONCE 10/25/18 16:00 10/25/18 16:01 DC 10/25/18 16:13 1,200,000 UNIT Prednisone (Prednisone) 50 mg 1X ONCE 10/25/18 16:00 10/25/18 16:01 DC 10/25/18 16:11 50 MG Allergies Allergies Allergies Coded Allergies Type Severity Reaction Last Updated Verified No Known Drug Allergies 01/22/15 No Physical Exam Physical Exam Constitutional: Well developed, well nourished, no acute distress, non-toxic appearance. [] HENT: Normocephalic, atraumatic, bilateral ears normal, mucous membranes pink/dry- bilat. tonsillar swelling/erythema/exudate- no peritonsillar abscess- uvula midline, nose normal. No pooling of secretions Eyes: PERRLA, no nystagmus, conjunctiva normal, no discharge. [] Neck: Normal range of motion, no tenderness, supple, no stridor/gross adenopathy Cardiovascular: Heart rate regular rhythm, no murmur [] Lungs & Thorax: Bilateral breath sounds clear to auscultation. Resp. equal/nonlabored Abdomen: Bowel sounds normal, soft/obese, no tenderness Skin: Warm, dry, no erythema, no rash. [] Back: No tenderness, no CVA tenderness. [] Extremities: No tenderness, no cyanosis, no clubbing, ROM intact, no edema. [] Neurologic: Alert and oriented X 3, normal motor function, normal sensory function, no focal deficits noted. [] Psychologic: Affect normal, judgement normal, mood anxious- no uncontrollable behavior Current Patient Data Vital Signs Vital Signs Date Time Temp Pulse Resp B/P (MAP) Pulse Ox O2 Delivery O2 Flow Rate FiO2 10/25/18 17:04 99 Room Air 10/25/18 15:35 99.8 85 18 162/94 (116) 99.8 EKG EKG EKG obtained 10/25/18 at [address] Chapin Sinus rhythm Nonspec. ST-T abnorm Rate 79 No STEMI Radiology/Procedures Radiology/Procedures [] Course & Med Decision Making Course & Med Decision Making Patient was evaluated for complaints of sore throat and on exam had bilateral tonsillar swelling and exudate. No strep test done- which patient was comfortable with and patient was treated with IM Bicillin LA. Patient reports with ongoing symptoms after being evaluated in the ER last week he has been anxious and reports he has been googling symptoms which made him nervous. Patient states he has had some chest tightness when he was anxious so EKG was obtained when no acute findings for ST elevation or STEMI. Patient had full workup last week with labs, abd US and EKG as well and was discharged with no acute findings during that evaluation. Discussed strep throat and plans for home discharge. Patient was provided with dose of prednisone and Tylenol while in the ER and advised on increasing fluid intake and use of yeih-ubc-[id number] medications for symptomatic treatment.Education provided on signs and symptoms to return to ER. Discharge instructions were discussed. Patient to follow-up with primary care physician if symptoms persist or with any concerns. [] Dragon Disclaimer Dragon Disclaimer This electronic medical record was generated, in whole or in part, using a voice recognition dictation system. Departure Departure Impression: Primary Impression: Headache Additional Impression: Strep throat Disposition: HOME, SELF-CARE Condition: STABLE Referrals: GERMAN NARVAEZ (PCP) Patient Instructions: Headache, FAQs, Strep Throat Additional Instructions: Drink plenty of water and eat well-balanced meals. Tylenol and/or ibuprofen as needed for pain and fever control. Follow-up with your primary care physician in 2-3 days for reevaluation sooner with any concerns. You were treated with penicillin while in the ER for your strep throat. Scripts Prednisone (PREDNISONE) 50 Mg Tablet 1 TAB PO DAILY, #4 TAB 0 Refills Start on 10/26/18 Prov: FLO CAMACHO APRN 10/25/18 Problem Qualifiers FLO CAMACHO APRN October 25, 2018 16:56
--- NOTE | 2018-10-26 12:38 | EKG ---
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
== END 2018-10-25 17:04 | disposition home or self-care (01) ==
LOC: ER 15:29
DX: J02.0 Streptococcal pharyngitis (principal); R51 Headache; B95.5 Unspecified streptococcus as the cause of diseases classified elsewhere; R07.89 Other chest pain
CPT/HCPCS: 93005; 96372; 99283; J0561; J7512

== ENCOUNTER 2018-11-23 18:03 | Emergency (ER) | payer SELFPAY ==
[~2018-11-23] VITALS: Ht 195.6 cm; Wt 170.1 kg
[~2018-11-23 18:03] MED LIST changes: +PRED50TA PO
[2018-11-23 18:16] VITALS: BP 154/103
[2018-11-23] MEDS ORDERED: AMOX875T PO (19:07)
--- NOTE | 2018-11-23 19:07 | PHYS DOC ---
Past Medical History Past Medical History: Other Additional Past Medical Histor: Lumbar Fx with bulging disc, MENINGITIS Past Surgical History: Other Additional Past Surgical Histo: left rotator cuff Alcohol Use: None Drug Use: None Adult General Chief Complaint Chief Complaint: SORE THROAT HPI HPI Patient is a 28 year old male who presents with a sore throat and ear pain that began today. Patient describes the ear pain is mild and pressure-like. Denies any coughing or congestion. States head strep infection last month and was given a Bicillin injection. Review of Systems Review of Systems Constitutional: Denies fever or chills [] Eyes: Denies change in visual acuity, redness, or eye pain [] HENT: Reports bilateral ear pain and sore throat. Denies nasal congestion Respiratory: Denies cough or shortness of breath [] Cardiovascular: No additional information not addressed in HPI [] GI: Denies abdominal pain, nausea, vomiting, bloody stools or diarrhea [] : Denies dysuria or hematuria [] Musculoskeletal: Denies back pain or joint pain [] Integument: Denies rash or skin lesions [] Neurologic: Denies headache, focal weakness or sensory changes [] All other systems were reviewed and found to be within normal limits, except as documented in this note. Allergies Allergies Allergies Coded Allergies Type Severity Reaction Last Updated Verified No Known Drug Allergies 01/22/15 No Physical Exam Physical Exam Constitutional: Well developed, well nourished, no acute distress, non-toxic appearance. [] HENT: Normocephalic, atraumatic, bilateral external ears normal, oropharynx moist, no oral exudates, nose normal. [] Bilateral TM are mildly injected. Posterior pharynx with mild erythema worse on the right side with exudate on the right side. Eyes: PERRLA, EOMI, conjunctiva normal, no discharge. [] Neck: Normal range of motion, no tenderness, supple, no stridor. [] Cardiovascular:Heart rate regular rhythm, no murmur [] Lungs & Thorax: Bilateral breath sounds clear to auscultation [] Abdomen: Bowel sounds normal, soft, no tenderness, no masses, no pulsatile masses. [] Skin: Warm, dry, no erythema, no rash. [] Back: No tenderness, no CVA tenderness. [] Extremities: No tenderness, no cyanosis, no clubbing, ROM intact, no edema. [] Neurologic: Alert and oriented X 3, normal motor function, normal sensory function, no focal deficits noted. [] Psychologic: Affect normal, judgement normal, mood normal. [] Current Patient Data Vital Signs Vital Signs Date Time Temp Pulse Resp B/P (MAP) Pulse Ox O2 Delivery O2 Flow Rate FiO2 11/23/18 18:16 98.5 98 18 154/103 (120) 98 Room Air 98.5 EKG EKG [] Radiology/Procedures Radiology/Procedures [] Course & Med Decision Making Course & Med Decision Making Pertinent Labs and Imaging studies reviewed. (See chart for details) This is a 28 year old presenting today with ear pain and sore throat. Positive rapid strep. Discharged on amoxicillin. Off note he was treated with Bicillin last month for strep. Tylenol/Motrin for pain or fever. Saltwater gargles recommended. Dragon Disclaimer Dragon Disclaimer This electronic medical record was generated, in whole or in part, using a voice recognition dictation system. Departure Departure Impression: Primary Impression: Otitis media Additional Impression: Strep throat Disposition: HOME, SELF-CARE Condition: STABLE Referrals: GERMAN NARVAEZ (PCP) follow up in 1-2 weeks DIMITRY TALBERT MD follow up in 1-2 weeks Patient Instructions: Otitis Media, Adult, Wnuf-[id number], Strep Throat Additional Instructions: You have strep infection and ear infection. We put you on antibiotics, ensure you take them to completion. Please follow-up with ENT provided in the next 2 weeks as needed. Use saltwater gargles as needed. Take Tylenol Motrin for pain or fever. Scripts Amoxicillin (AMOXICILLIN) 875 Mg Tablet 1 TAB PO BID, #20 TAB Prov: KERRI ABREU APRN 11/23/18 Problem Qualifiers Primary Impression: Otitis media Otitis media type: other nonsuppurative Chronicity: acute Laterality: bi lateral Recurrence: not specified as recurrent Qualified Codes: H65.193 - Other acute nonsuppurative otitis media, bilateral KERRI ABREU APRN Nov 23, 2018 19:07
== END 2018-11-23 19:19 | disposition home or self-care (01) ==
LOC: ER 18:03
DX: H65.193 Other acute nonsuppurative otitis media, bilateral (principal); J02.0 Streptococcal pharyngitis; B95.5 Unspecified streptococcus as the cause of diseases classified elsewhere
CPT/HCPCS: 87880; 99283

== ENCOUNTER 2018-12-14 11:41 | Emergency (ER) | payer SELFPAY ==
[~2018-12-14] VITALS: Ht 195.6 cm; Wt 170.1 kg
[2018-12-14 11:52] VITALS: BP 150/82
[2018-12-14] MEDS ORDERED: ERYTHROMYCIN 0.5% OPHTH OINTMENT 1GM TUBE. OS ONE (12:00)
--- NOTE | 2018-12-14 12:13 | PHYS DOC ---
Past Medical History Past Medical History: Other Additional Past Medical Histor: Lumbar Fx with bulging disc, MENINGITIS Past Surgical History: Other Additional Past Surgical Histo: left rotator cuff Alcohol Use: None Drug Use: None Adult General Chief Complaint Chief Complaint: EYE PROBLEMS HPI HPI Patient is a 28 year old male who presents with complaining of splash of glue to his eye. Patient states he accidentally splashed wallpaper glue to his left eye and washed his eye extensive but this has blurred vision. Patient denies other injuries, headache, nausea and vomiting. Review of Systems Review of Systems Constitutional: Denies fever or chills [] Eyes: Denies change in visual acuity, reports redness. HENT: Denies nasal congestion or sore throat [] Respiratory: Denies cough or shortness of breath [] Cardiovascular: No additional information not addressed in HPI [] GI: Denies abdominal pain, nausea, vomiting, bloody stools or diarrhea [] : Denies dysuria or hematuria [] Musculoskeletal: Denies back pain or joint pain [] Integument: Denies rash or skin lesions [] Neurologic: Denies headache, focal weakness or sensory changes [] Endocrine: Denies polyuria or polydipsia [] All other systems were reviewed and found to be within normal limits, except as documented in this note. Current Medications Current Medications Current Medications Medications (Trade) Dose Ordered Sig/Dinorah Start Time Stop Time Status Last Admin Dose Admin Erythromycin (Romycin) 0.25 inch 1X ONCE 12/14/18 12:00 12/14/18 12:01 DC 12/14/18 12:00 0.25 INCH Allergies Allergies Allergies Coded Allergies Type Severity Reaction Last Updated Verified No Known Drug Allergies 01/22/15 No Physical Exam Physical Exam Constitutional: Well developed, well nourished, mild distress, non-toxic appearance. [] HENT: Normocephalic, atraumatic. Eyes: PERRLA, EOMI, left conjunctival erythema without foreign body, no discharge. [] Neck: Normal range of motion, no tenderness, supple, no stridor. [] Cardiovascular:Heart rate regular rhythm, no murmur [] Lungs & Thorax: Bilateral breath sounds clear to auscultation [] Neurologic: Alert and oriented X 3, normal motor function, normal sensory function, no focal deficits noted. [] Psychologic: Affect normal, judgement normal, mood normal. [] Current Patient Data Vital Signs Vital Signs Date Time Temp Pulse Resp B/P (MAP) Pulse Ox O2 Delivery O2 Flow Rate FiO2 12/14/18 11:52 97.9 86 16 150/82 (104) 97 Room Air 97.9 EKG EKG [] Radiology/Procedures Radiology/Procedures [] Course & Med Decision Making Course & Med Decision Making Evaluation of patient in ER showed 28-year-old male patient with complaining of accidental splash of glue to left eye. Patient treated with erythromycin oint ment in ER and was advised to continue to take erythromycin ointment for the next 2 days. Dragon Disclaimer Dragon Disclaimer This electronic medical record was generated, in whole or in part, using a voice recognition dictation system. Departure Departure Impression: Primary Impression: Chemical exposure of eye Disposition: 01 HOME, SELF-CARE (at 1208) Condition: IMPROVED Referrals: GERMAN NARVAEZ (PCP) Patient Instructions: Conjunctivitis, Chemical Additional Instructions: Apply dispense erythromycin eye ointment in left eye every 4 hours for the next 2 days Follow-up with your primary care physician in 3-5 days Return to ER if not getting better ELIDA ZARATE MD Dec 14, 2018 12:13
== END 2018-12-14 12:49 | disposition home or self-care (01) ==
LOC: ER 11:41
DX: Z77.098 Contact with and (suspected) exposure to other hazardous, chiefly nonmedicinal, chemicals (principal)
CPT/HCPCS: 99282

== ENCOUNTER 2018-12-20 20:31 | Emergency (ER) | payer SELFPAY ==
[~2018-12-20] VITALS: Ht 193 cm; Wt 170.1 kg
[2018-12-20] MEDS ORDERED: NAPR-514 PO (21:11)
[2018-12-20] MEDS ORDERED: PENI500T PO (21:11)
[2018-12-20] MEDS ORDERED: CHLO15MO2 SWSP (21:11)
--- NOTE | 2018-12-20 21:12 | PHYS DOC ---
Past Medical History Past Medical History: Other Additional Past Medical Histor: Lumbar Fx with bulging disc, MENINGITIS (LIS RASHID APRN) Past Surgical History: Other Additional Past Surgical Histo: left rotator cuff (LIS RASHID APRN) Alcohol Use: None Drug Use: None (LIS RASHID APRN) Adult General Chief Complaint Chief Complaint: DENTAL PROBLEM HPI HPI Patient is a 28 year old AA male who presents to the emergency department with complaints of right upper dental pain that started earlier today. He denies any fever, trauma, nausea, vomiting, abdominal pain, rash, sore throat, cough, or shortness of breath. He currently rates the pain a 10 out of 10 on pain scale, nothing has helped to alleviate the pain. Patient states that he took 2 Tylenol at home at approximately 1600. (LIS RASHID APRN) Review of Systems Review of Systems Constitutional: Denies fever or chills [] HENT: Denies nasal congestion or sore throat; see history of present illness [] Respiratory: Denies cough or shortness of breath [] GI: Denies nausea, vomiting Integument: Denies rash or skin lesions [] Neurologic: Denies headache, focal weakness or sensory changes [] (LIS RASHID APRN) Current Medications Current Medications Current Medications Medications (Trade) Dose Ordered Sig/Dinorah Start Time Stop Time Status Last Admin Dose Admin Naproxen (Naprosyn) 500 mg 1X ONCE 12/20/18 21:30 12/20/18 21:31 DC 12/20/18 21:20 500 MG Tramadol HCl (Ultram) 50 mg STK-MED ONCE 12/20/18 21:26 12/20/18 21:27 DC (KAYLYN SUAREZ MD) Allergies Allergies Allergies Coded Allergies Type Severity Reaction Last Updated Verified No Known Drug Allergies 01/22/15 No (KAYLYN SUAREZ MD) Physical Exam Physical Exam Constitutional: Well developed, well nourished, no acute distress, non-toxic appearance obese. [] HENT: Normocephalic, atraumatic, bilateral external ears normal, bilateral TMs normal, posterior pharynx normal, oropharynx moist, no oral exudates, nose normal; decay noted to tooth #2 and #3, with fractures of tooth #2 present, surrounding gingival erythema, no associated abscess [] Eyes: conjunctiva normal, no discharge. [] Neck: Normal range of motion, no tenderness, supple, no stridor. [] Cardiovascular:Heart rate regular rhythm, no murmur [] Lungs & Thorax: Bilateral breath sounds clear to auscultation [] Skin: Warm, dry, no erythema, no rash. [] Extremities: No cyanosis, ROM intact, Neurologic: Alert and oriented X 3, no focal deficits noted. [] Psychologic: Affect normal, judgement normal, mood normal. [] (LIS RASHDI APRN) Current Patient Data Vital Signs Vital Signs Date Time Temp Pulse Resp B/P (MAP) Pulse Ox O2 Delivery O2 Flow Rate FiO2 12/20/18 21:27 170/93 (118) 12/20/18 20:54 98.6 97 15 97 Room Air 98.6 (KAYLYN SUAREZ MD) EKG EKG [] (LIS RASHID APRN) Radiology/Procedures Radiology/Procedures [] (LIS RASHID APRN) Course & Med Decision Making Course & Med Decision Making Pertinent Labs and Imaging studies reviewed. (See chart for details) [] (LIS RASHID APRN) Course & Med Decision Making Staff Physician Addendum: I was working in the ER during the course of this patient's visit. I was available for consultation as needed, but I was not directly involved in the care of this patient. (KAYLYN SUAREZ MD) Dragon Disclaimer Dragon Disclaimer This electronic medical record was generated, in whole or in part, using a voice recognition dictation system. (LIS RASHID APRN) Departure Departure Impression: Primary Impression: Infected dental caries Additional Impressions: Dentalgia Gingivitis Hypertension Disposition: 01 HOME, SELF-CARE Condition: STABLE Referrals: GERMAN NARVAEZ (PCP) Patient Instructions: Dental Caries, Gingivitis, [id number] Additional Instructions: Fill prescriptions and use as directed. Follow up with dentist using the referral list provided. Return to the ER if symptoms worsen. Follow up with your doctor about your blood pressure it was 170/93 in the ER today Scripts Chlorhexidine Gluconate (PERIDEX) 15 Ml Mouthwash 15 ML SWSP BID for 10 Days, #473 ML 0 Refills Prov: LIS RASHID APRN 12/20/18 Naproxen (NAPROXEN) 500 Mg Tablet 1 TAB PO BID PRN for PAIN for 10 Days, #20 TAB 0 Refills Prov: LIS RASHID APRN 12/20/18 Penicillin V Potassium (PENICILLIN V POTASSIUM) 500 Mg Tablet 1 TAB PO QID for 10 Days, #40 TAB 0 Refills Prov: LIS RASHID APRN 12/20/18 Problem Qualifiers Additional Impressions: Hypertension Hypertension type: unspecified Qualified Codes: I10 - Essential (primary) hypertension LIS RASHID APRN Dec 20, 2018 21:11 KAYLYN SUAREZ MD Dec 21, 2018 05:52
[2018-12-20] MEDS ORDERED: traMADol 50 MG TABLET ONE (21:26)
[2018-12-20 21:27] VITALS: BP 170/93
[2018-12-20] MEDS ORDERED: NAPROXEN 500 MG TABLET PO ONE (21:30)
[2018-12-20] MEDS ORDERED: traMADol 50 MG TABLET PO ONE (22:00)
== END 2018-12-20 21:32 | disposition home or self-care (01) ==
LOC: ER 20:31
DX: K04.7 Periapical abscess without sinus (principal); K05.10 Chronic gingivitis, plaque induced; I10 Essential (primary) hypertension
CPT/HCPCS: 99283

== ENCOUNTER 2019-02-01 10:57 | Emergency (ER) | payer SELFPAY ==
[~2019-02-01] VITALS: Ht 188 cm; Wt 170.1 kg
[~2019-02-01 10:57] MED LIST changes: +CHLO15MO2 SWSP; +NAPR-514 PO; +PENI500T PO
[2019-02-01] MEDS ORDERED: ASPIRIN 325 MG TABLET PO ONE (13:00)
[2019-02-01 13:17] LABS: BASO % 0 % (0-3); EOS # 0.4 x10^3/uL (0.0-0.7); EOS % 5 % (0-3); HEMATOCRIT 47.7 % (39.0-53.0); HEMOGLOBIN 15.7 g/dL (13.0-17.5); LYMPH % 44 % (24-48); MEAN CORPUSCULAR HEMOGLOBIN 29 pg (25-35); MEAN CORPUSCULAR HGB CONC 33 g/dL (31-37); MEAN CORPUSCULAR VOLUME 88 fL (79-100); MONO # 0.6 x10^3/uL (0.0-1.1); MONO % 9 % (0-9); NEUT # 2.8 x10^3/uL (1.8-7.7); NEUT % 42 % (31-73); PLATELET COUNT 331 x10^3/uL (140-400); RED BLOOD COUNT 5.42 x10^6/uL (4.30-5.70); WHITE BLOOD COUNT 6.8 x10^3/uL (4.0-11.0)
[2019-02-01 13:30] LABS: CALCIUM 9.3 mg/dL (8.5-10.1); CREATININE 0.8 mg/dL (0.7-1.3); POTASSIUM 4.1 mmol/L (3.5-5.1)
[2019-02-01 13:39] LABS: ALBUMIN 3.9 g/dL (3.4-5.0); MAGNESIUM 1.9 mg/dL (1.8-2.4); TOTAL BILIRUBIN 0.5 mg/dL (0.2-1.0)
--- NOTE | 2019-02-01 14:35 | RAD ---
CHEST PA LATERAL History: Chest pain this morning. Comparison with November 09, 2016 image without report Cardiomediastinal silhouette is stable. No evidence of pneumothorax. No pleural effusion. No consolidating infiltrate. IMPRESSION: No evidence of acute consolidating infiltrate. Electronically signed by: Boni Carrington MD (02/01/2019 2:32 PM) [facility]
[2019-02-01 14:49] VITALS: BP 126/83
--- NOTE | 2019-02-01 15:08 | PHYS DOC ---
Past Medical History Past Medical History: No Pertinent History, Other Additional Past Medical Histor: Lumbar Fx with bulging disc, MENINGITIS Past Surgical History: Other Additional Past Surgical Histo: left rotator cuff Alcohol Use: None Drug Use: None Adult General Chief Complaint Chief Complaint: HYPERTENSION HPI HPI Patient is a 28 year old AA male who presents to the ER with complaints of elevated blood pressure of 170/89 that he checked at the pharmacy. Pt states he has been unable to get erections recently and he talked to a family member who told him that this may be due to high blood pressure. Pt denies any complaints at this time. Pt states he has experienced chest pains and tingling in his left hand intermittently for the last year. He reports his only family cardiac hx is that one of his grandfather's of a heart attack. He denies any pain at this time. Review of Systems Review of Systems Constitutional: Denies fever or chills [] Eyes: Denies change in visual acuity, redness, or eye pain [] HENT: Denies nasal congestion or sore throat [] Respiratory: Denies cough or shortness of breath [] Cardiovascular: Denies chest pain or palpitations, No additional information not addressed in HPI [] GI: Denies abdominal pain, nausea, vomiting, bloody or diarrhea [] : Denies dysuria, increased urinary frequency, incontinence, or hematuria; see HPI Musculoskeletal: Denies back pain or joint pain [] Integument: Denies rash or skin lesions [] Neurologic: Denies headache, focal weakness or sensory changes [] Endocrine: Denies polyuria or polydipsia [] Complete systems were reviewed and found to be within normal limits, except as documented in this note. Current Medications Current Medications Current Medications Medications (Trade) Dose Ordered Sig/[facility] Start Time Stop Time Status Last Admin Dose Admin Aspirin (Angela Aspirin) 325 mg 1X ONCE 02/01/19 13:00 02/01/19 13:01 DC 02/01/19 13:23 325 MG Allergies Allergies Allergies Coded Allergies Type Severity Reaction Last Updated Verified No Known Drug Allergies 01/22/15 No Physical Exam Physical Exam Constitutional: Well developed, well nourished, no acute distress, non-toxic appearance, obese. [] HENT: Normocephalic, atraumatic, bilateral external ears normal, oropharynx moist, no oral exudates, nose normal. [] Eyes: PERRLA, EOMI, conjunctiva normal, no discharge. [] Neck: Normal range of motion, no tenderness, supple, no stridor. [] Cardiovascular:Heart rate regular rhythm, no murmur [] Lungs & Thorax: Bilateral breath sounds clear to auscultation [] Abdomen: Bowel sounds normal, soft, no tenderness, no masses, no pulsatile masses. [] Skin: Warm, dry, no erythema, no rash. [] Back: No tenderness, no CVA tenderness. [] Extremities: No cyanosis, no clubbing, ROM intact, no edema. [] Neurologic: Alert and oriented X 3, normal motor function, normal sensory function, no focal deficits noted. [] Psychologic: Affect normal, judgement normal, mood normal. [] Current Patient Data Vital Signs Vital Signs Date Time Temp Pulse Resp B/P (MAP) Pulse Ox O2 Delivery O2 Flow Rate FiO2 02/01/19 14:49 72 99 02/01/19 14:01 16 02/01/19 12:50 97.9 140/93 (109) Room Air 97.9 Lab Values Laboratory Tests Test 02/01/19 13:11 White Blood Count 6.8 x10^3/uL (4.0-11.0) Red Blood Count 5.42 x10^6/uL (4.30-5.70) Hemoglobin 15.7 g/dL (13.0-17.5) Hematocrit 47.7 % (39.0-53.0) Mean Corpuscular Volume 88 fL (79-100) Mean Corpuscular Hemoglobin 29 pg (25-35) Mean Corpuscular Hemoglobin Concent 33 g/dL (31-37) Red Cell Distribution Width 13.0 % (11.5-14.5) Platelet Count 331 x10^3/uL (140-400) Neutrophils (%) (Auto) 42 % (31-73) Lymphocytes (%) (Auto) 44 % (24-48) Monocytes (%) (Auto) 9 % (0-9) Eosinophils (%) (Auto) 5 % (0-3) H Basophils (%) (Auto) 0 % (0-3) Neutrophils # (Auto) 2.8 x10^3/uL (1.8-7.7) Lymphocytes # (Auto) 3.0 x10^3/uL (1.0-4.8) Monocytes # (Auto) 0.6 x10^3/uL (0.0-1.1) Eosinophils # (Auto) 0.4 x10^3/uL (0.0-0.7) Basophils # (Auto) 0.0 x10^3/uL (0.0-0.2) Prothrombin Time 13.0 SEC (11.7-14.0) Prothrombin Time INR 1.0 (0.8-1.1) Activated Partial Thromboplast Time 31 SEC (24-38) Sodium Level 140 mmol/L (136-145) Potassium Level 4.1 mmol/L (3.5-5.1) Chloride Level 105 mmol/L (98-107) Carbon Dioxide Level 25 mmol/L (21-32) Anion Gap 10 (6-14) Blood Urea Nitrogen 13 mg/dL (8-26) Creatinine 0.8 mg/dL (0.7-1.3) Estimated GFR (Cockcroft-Gault) 116.0 BUN/Creatinine Ratio 16 (6-20) Glucose Level 95 mg/dL (70-99) Calcium Level 9.3 mg/dL (8.5-10.1) Magnesium Level 1.9 mg/dL (1.8-2.4) Total Bilirubin 0.5 mg/dL (0.2-1.0) Aspartate Amino Transferase (AST) 25 U/L (15-37) Alanine Aminotransferase (ALT) 40 U/L (16-63) Alkaline Phosphatase 103 U/L (46-116) Creatine Kinase 207 U/L (39-308) Creatine Kinase MB (Mass) 0.5 ng/mL (0.0-3.6) Creatine Kinase MB Relative Index 0.2 % (0-4) Troponin I Quantitative < 0.017 ng/mL (0.000-0.055) Total Protein 8.0 g/dL (6.4-8.2) Albumin 3.9 g/dL (3.4-5.0) Albumin/Globulin Ratio 1.0 (1.0-1.7) Laboratory Tests 02/01/19 13:11 Laboratory Tests 02/01/19 13:11 EKG EKG 1302- SR rate 62, no STEMI read by Dr. Hanley[] Radiology/Procedures Radiology/Procedures PROCEDURE: CHEST PA & LATERAL CHEST PA LATERAL History: Chest pain this morning. Comparison with November 09, 2016 image without report Cardiomediastinal silhouette is stable. No evidence of pneumothorax. No pleural effusion. No consolidating infiltrate. IMPRESSION: No evidence of acute consolidating infiltrate. [] Course & Med Decision Making Course & Med Decision Making Pertinent Labs and Imaging studies reviewed. (See chart for details) dx: HTN, erectile dysfunction CBC unremarkable, CMP unremarkable, PT/INR WNL CXR negative Pt's VSS in the ER Pt instructed to follow up with a primary care doctor for further evaluation of blood pressure and erectile dysfunction. Return to the ER if your symptoms worsen. Patient verbalized an understanding of home care, medications, follow-up, and return to ED instructions and was in agreement with the plan of care. Dragon Disclaimer Dragon Disclaimer This electronic medical record was generated, in whole or in part, using a voice recognition dictation system. Departure Departure Impression: Primary Impression: Hypertension Additional Impression: Erectile dysfunction Disposition: HOME, SELF-CARE Condition: STABLE Referrals: GERMAN NARVAEZ (PCP) Patient Instructions: Hypertension, [id number] Additional Instructions: Follow up with a primary care doctor for further evaluation of blood pressure and erectile dysfunction. Return to the ER if your symptoms worsen. The HEART Score for CP Pts HEART Score for Chest Pain: HEART Score for Chest Pain Response (Comments) Value History Slighlty/Non-Suspicious 0 ECG Normal 0 Age < 45 0 Risk Factors 1 or 2 Risk Factors 1 Troponin < Normal Limit 0 Total 1 Risk Factors: Risk Factors: DM, Current or recent (<one month) smoker, HTN, HLP, family history of CAD, obesity. Risk Scores: Score 0 - 3: 2.5% MACE over next 6 weeks - Discharge Home Score 4 - 6: 20.3% MACE over next 6 weeks - Admit for Clinical Observation Score 7 - 10: 72.7% MACE over next 6 weeks - Early Invasive Strategies Problem Qualifiers Primary Impression: Hypertension Hypertension type: unspecified Qualified Codes: I10 - Essential (primary) hypertension Additional Impression: Erectile dysfunction Erectile dysfunction type: unspecified Qualified Codes: N52.9 - Male erectile dysfunction, unspecified LIS RASHID APRN Feb 01, 2019 15:08
--- NOTE | 2019-02-01 17:02 | EKG ---
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
== END 2019-02-01 15:30 | disposition home or self-care (01) ==
LOC: ER 10:57
DX: I10 Essential (primary) hypertension (principal); N52.9 Male erectile dysfunction, unspecified
CPT/HCPCS: 36415; 71046; 80053; 82553; 83735; 84484; 85025; 85610; 85730; 93005; 99283; 99285

== ENCOUNTER 2019-03-09 23:57 | Emergency (ER) | payer SELFPAY ==
[~2019-03-09] VITALS: Ht 195.6 cm; Wt 170.1 kg
[2019-03-10 00:05] VITALS: BP 159/98
[2019-03-10] MEDS ORDERED: AMOX500C PO (00:22)
--- NOTE | 2019-03-10 00:22 | PHYS DOC ---
Past Medical History Past Medical History: Other Additional Past Medical Histor: Lumbar Fx with bulging disc, MENINGITIS Past Surgical History: Other Additional Past Surgical Histo: left rotator cuff Alcohol Use: None Drug Use: None Adult General Chief Complaint Chief Complaint: SORE THROAT HPI HPI Patient's 28-year-old male who presents with a sore throat. Been ongoing for a day or 2. He's had some subjective fever. He denies any rash. He states he's had strep in the past and the shot did not work for him. He denies any nausea or vomiting.[] Review of Systems Review of Systems Constitutional: Denies fever or chills [] Eyes: Denies change in visual acuity, redness, or eye pain [] HENT: Per history of present illness[] Respiratory: Denies cough or shortness of breath [] Cardiovascular: No additional information not addressed in HPI [] GI: Denies abdominal pain, nausea, vomiting, bloody stools or diarrhea [] : Denies dysuria or hematuria [] Musculoskeletal: Denies back pain or joint pain [] Integument: Denies rash or skin lesions [] Neurologic: Denies headache, focal weakness or sensory changes [] Endocrine: Denies polyuria or polydipsia [] All other systems were reviewed and found to be within normal limits, except as documented in this note. Allergies Allergies Allergies Coded Allergies Type Severity Reaction Last Updated Verified No Known Drug Allergies 01/22/15 No Physical Exam Physical Exam Constitutional: Well developed, well nourished, appears acutely ill. [] HENT: Posterior pharynx is erythematous with tonsillar exudate[] Eyes: PERRLA, EOMI, conjunctiva normal, no discharge. [] Neck: Normal range of motion, no tenderness, supple, no stridor. [] Cardiovascular:Heart rate regular rhythm, no murmur [] Lungs & Thorax: Bilateral breath sounds clear to auscultation [] Abdomen: Bowel sounds normal, soft, no tenderness, no masses, no pulsatile masses. [] Skin: Warm, dry, no erythema, no rash. [] Back: No tenderness, no CVA tenderness. [] Extremities: No tenderness, no cyanosis, no clubbing, ROM intact, no edema. [] Neurologic: Alert and oriented X 3, normal motor function, normal sensory function, no focal deficits noted. [] Psychologic: Affect normal, judgement normal, mood normal. [] Current Patient Data Vital Signs Vital Signs Date Time Temp Pulse Resp B/P (MAP) Pulse Ox O2 Delivery O2 Flow Rate FiO2 03/10/19 00:05 98.3 84 20 159/98 (118) 98 Room Air 98.3 EKG EKG [] Radiology/Procedures Radiology/Procedures [] Course & Med Decision Making Course & Med Decision Making Pertinent Labs and Imaging studies reviewed. (See chart for details) [] Dragon Disclaimer Dragon Disclaimer This electronic medical record was generated, in whole or in part, using a voice recognition dictation system. Departure Departure Impression: Primary Impression: Strep pharyngitis Disposition: HOME, SELF-CARE Condition: STABLE Referrals: NO PCP (PCP) Patient Instructions: Viral and Bacterial Pharyngitis Additional Instructions: Take medication as directed Scripts Amoxicillin (AMOXICILLIN) 500 Mg Capsule 1 CAP PO TID for pharyngitis, #30 CAP Prov: OH CASTRO DO 03/10/19 OH CASTRO DO Mar 10, 2019 00:22
[2019-03-10] MEDS ORDERED: IBUP-1007 PO (17:33)
[2019-03-10] MEDS ORDERED: ONDA4TAB12 PO (17:33)
== END 2019-03-10 00:30 | disposition home or self-care (01) ==
LOC: ER 23:57
DX: J02.0 Streptococcal pharyngitis (principal); B95.5 Unspecified streptococcus as the cause of diseases classified elsewhere
CPT/HCPCS: 99283

== ENCOUNTER 2019-03-10 14:50 | Emergency (ER) | payer SELFPAY ==
[~2019-03-10] VITALS: Ht 198.1 cm; Wt 167.4 kg
[~2019-03-10 14:50] MED LIST changes: +AMOX500C PO
[2019-03-10] MEDS ORDERED: IV NORMAL SALINE 1000ML BAG 1,000 ML IV ONE (15:15)
[2019-03-10] MEDS ORDERED: ONDANSETRON PF 4 MG/2 ML VIAL. IVP ONE (15:15)
--- NOTE | 2019-03-10 15:20 | PHYS DOC ---
Past Medical History Past Medical History: Other Additional Past Medical Histor: Lumbar Fx with bulging disc, MENINGITIS Past Surgical History: Other Additional Past Surgical Histo: left rotator cuff Alcohol Use: None Drug Use: None Adult General Chief Complaint Chief Complaint: HEADACHE HPI HPI Patient is a 28 year old male who presents with was here March 09, 2019 was d iagnosed with strep. Patient was placed on amoxicillin. Patient complains of sinus congestion, right-sided facial headache, nausea, vomiting, subjective fever and sore throat. Patient rates his head pain a 10 out of 10 and states it's throbbing. Patient states he has overall generalized weakness. Review of Systems Review of Systems Constitutional: fever or chills [] Eyes: Denies change in visual acuity, redness, or eye pain [] HENT: nasal congestion or sore throat [] Respiratory: Denies cough or shortness of breath [] GI: abdominal pain, nausea, vomiting, denies bloody stools or diarrhea [] Musculoskeletal: Generalized weakness. Denies back pain or joint pain [] Neurologic: Right frontal headache, denies focal weakness or sensory changes [] All other systems were reviewed and found to be within normal limits, except as documented in this note. Current Medications Current Medications Current Medications Medications (Trade) Dose Ordered Sig/Dinorah Start Time Stop Time Status Last Admin Dose Admin Ketorolac Tromethamine (Toradol 30mg Vial) 30 mg 1X ONCE 03/10/19 16:15 03/10/19 16:17 DC 03/10/19 16:35 30 MG Ondansetron HCl (Zofran) 4 mg 1X ONCE 03/10/19 15:15 03/10/19 15:16 DC 03/10/19 15:27 4 MG Sodium Chloride 1,000 ml @ 1,000 mls/hr 1X ONCE 03/10/19 15:15 03/10/19 16:14 DC 03/10/19 15:15 1,000 MLS/HR Allergies Allergies Allergies Coded Allergies Type Severity Reaction Last Updated Verified No Known Drug Allergies 01/22/15 No Physical Exam Physical Exam Constitutional: Well developed, well nourished, no acute distress, non-toxic appearance. [] HENT: Normocephalic, atraumatic, bilateral external ears normal, oropharynx moist, no oral exudates, nose normal. Throat reddened only. [] Eyes: PERRLA, EOMI, conjunctiva normal, no discharge. [] Neck: Normal range of motion, no tenderness, supple, no stridor. [] Cardiovascular:Heart rate regular rhythm, no murmur [] Lungs & Thorax: Bilateral upper breath sounds clear but lower diminished to auscultation [] Abdomen: Bowel sounds normal, soft, LUQ tenderness, no masses, no pulsatile masses. [] Skin: Warm, dry, no erythema, no rash. [] Back: No tenderness, no CVA tenderness. [] Extremities: No tenderness, no cyanosis, no clubbing, ROM intact, no edema. [] Neurologic: Alert and oriented X 3, normal motor function, normal sensory function, no focal deficits noted. [] Psychologic: Affect normal, judgement normal, mood normal. [] Current Patient Data Vital Signs Vital Signs Date Time Temp Pulse Resp B/P (MAP) Pulse Ox O2 Delivery O2 Flow Rate FiO2 03/10/19 15:10 98.7 84 15 143/89 (107) 97 Room Air 98.7 Lab Values Laboratory Tests Test 03/10/19 15:18 White Blood Count 9.3 x10^3/uL (4.0-11.0) Red Blood Count 5.34 x10^6/uL (4.30-5.70) Hemoglobin 15.2 g/dL (13.0-17.5) Hematocrit 46.6 % (39.0-53.0) Mean Corpuscular Volume 87 fL (79-100) Mean Corpuscular Hemoglobin 28 pg (25-35) Mean Corpuscular Hemoglobin Concent 33 g/dL (31-37) Red Cell Distribution Width 13.3 % (11.5-14.5) Platelet Count 425 x10^3/uL (140-400) H Neutrophils (%) (Auto) 46 % (31-73) Lymphocytes (%) (Auto) 33 % (24-48) Monocytes (%) (Auto) 15 % (0-9) H Eosinophils (%) (Auto) 5 % (0-3) H Basophils (%) (Auto) 1 % (0-3) Neutrophils # (Auto) 4.3 x10^3/uL (1.8-7.7) Lymphocytes # (Auto) 3.1 x10^3/uL (1.0-4.8) Monocytes # (Auto) 1.4 x10^3/uL (0.0-1.1) H Eosinophils # (Auto) 0.5 x10^3/uL (0.0-0.7) Basophils # (Auto) 0.1 x10^3/uL (0.0-0.2) Sodium Level 143 mmol/L (136-145) Potassium Level 4.0 mmol/L (3.5-5.1) Chloride Level 105 mmol/L (98-107) Carbon Dioxide Level 29 mmol/L (21-32) Anion Gap 9 (6-14) Blood Urea Nitrogen 12 mg/dL (8-26) Creatinine 1.0 mg/dL (0.7-1.3) Estimated GFR (Cockcroft-Gault) 89.6 BUN/Creatinine Ratio 12 (6-20) Glucose Level 95 mg/dL (70-99) Calcium Level 9.6 mg/dL (8.5-10.1) Total Bilirubin 0.4 mg/dL (0.2-1.0) Aspartate Amino Transferase (AST) 25 U/L (15-37) Alanine Aminotransferase (ALT) 41 U/L (16-63) Alkaline Phosphatase 115 U/L (46-116) Total Protein 8.3 g/dL (6.4-8.2) H Albumin 4.1 g/dL (3.4-5.0) Albumin/Globulin Ratio 1.0 (1.0-1.7) Lipase 36 U/L (73-393) L Influenza Type A Antigen Negative (NEGATIVE) Influenza Type B Antigen Negative (NEGATIVE) Laboratory Tests 03/10/19 15:18 Laboratory Tests 03/10/19 15:18 EKG EKG [] Radiology/Procedures Radiology/Procedures [] Impressions: [facility] [address] [place] [address] IMAGING REPORT Signed PATIENT: TIERRA COREAACCOUNT: [id number] : 1990 LOCATION: ER AGE: 28 SEX: M EXAM STATUS: REG ER ORD. PHYSICIAN: JEROD GOOD APRN REASON: weakness PROCEDURE: PORTABLE CHEST 1V PORTABLE CHEST 1V 03/10/2019 3:28 PM INDICATION: Weakness COMPARISON: 02/01/2019 TECHNIQUE: Portable frontal view of the chest is provided. FINDINGS: The cardiomediastinal silhouette is similar in appearance. Lungs are clear There are no significant pleural effusions. There is no pulmonary vascular congestion. No pneumothorax. IMPRESSION: There is no acute cardiopulmonary process. Electronically signed by: Jodie Kitchen MD (03/10/2019 3:42 PM) [facility] DICTATED and SIGNED BY: JODIE KITCHEN MD DATE: 03/10/19 154 [facility] [address] [place] [address] IMAGING REPORT Signed PATIENT: TIERRA COREAACCOUNT: [id number] : 1990 LOCATION: ER AGE: 28 SEX: M EXAM STATUS: REG ER ORD. PHYSICIAN: JEROD GOOD APRN REASON: headache without hx of headaches PROCEDURE: CT HEAD WO CONTRAST CT HEAD WO CONTRAST Date: 03/10/2019 3:09 PM Clinical Indication: Headache Comparison: None. Technique: 5 mm axial tomographic images were obtained of the head without contrast. These were viewed on brain and bone windows. One or more of the following dose reduction techniques were utilized: Automated exposure control (AEC), Adjustment of mA and/or kV according to patient size, Use of iterative reconstruction technique such as ASiR, CT scan done according to ALARA and image gently/image wisely Findings: The brain parenchyma is normal in attenuation. No intra- or extra-axial mass or fluid collection. No acute hemorrhage. The ventricles are normal in size, shape, and morphology. The dale-white matter junction is normal. The subarachnoid cisterns are patent. The visualized paranasal sinuses are normal. The visualized portions of the orbits and globes are normal. The mastoid air cells are clear. The orthopedic coder topogram shows no lytic lesion or fracture. Impression: No acute intracranial process. Electronically signed by: Huber Mccarty MD (03/10/2019 3:49 PM) [id number] DICTATED and SIGNED BY: HUBER MCCARTY MD DATE: 03/10/19 1549 Course & Med Decision Making Course & Med Decision Making Patient is a 28 year old male who presents with was here March 09, 2019 was diagnosed with strep. Patient was placed on amoxicillin. Patient complains of sinus congestion, right-sided facial headache, nausea, vomiting, subjective fever and sore throat. Patient rates his head pain a 10 out of 10 and states it's throbbing. Patient states he has overall generalized weakness. Patient states he's had 2 doses of amoxicillin. Patient states today her last hour he's been vomiting 5-6 times. Patient states the vomiting just started today. Patient has maxillary sinus tenderness and frontal sinus tenderness bilaterally. States most of his head pain is around the right eye. PERRLA. Lungs are clear to auscultation upper lobes but diminished in lower lobes. Speaks in full clear sentences. PERRLA. Abdomen is soft and tender to left upper quadrant. When asked if the patient ate before he took his antibiotic he said he thinks so he thinks he ate a sausage and then took his antibiotic. Patient states only thing that he has taken today was early this morning he took Tylenol Sinus medication. Throat is reddened but there is no swelling or exudates seen. Patient has a history of meningitis, strep, rotator cuff surgery. Skin pink warm and dry. Mucous membranes are moist. Afebrile. Vital signs within normal limits. Alert and oriented. CT Head and Chest Xray show no acute findings. Rapid Strep negative. Rapid Flu negative. Blood work unremarkable. 1730: Patient states he is feeling much better. Patient to be discharged with nausea medicine and told to continue taking amoxicillin for sinusitis. Dragon Disclaimer Dragon Disclaimer This electronic medical record was generated, in whole or in part, using a voice recognition dictation system. Departure Departure Impression: Primary Impression: Nausea and vomiting Disposition: HOME, SELF-CARE Condition: STABLE Referrals: NO PCP (PCP) Patient Instructions: Nausea and Vomiting Additional Instructions: Take antibiotic with meals. Follow up with primary care provider. Scripts Ibuprofen (IBUPROFEN) 600 Mg Tablet 600 MG PO PRN Q6HRS PRN for INFLAMMATION, #30 TAB Prov: JEROD GOOD MAGNETO ELECTRICIAN 03/10/19 Ondansetron (ONDANSETRON ODT) 4 Mg Tab.rapdis 1 TAB PO PRN Q6-8HRS, #20 TAB Prov: JEROD GOOD MAGNETO ELECTRICIAN 03/10/19 Problem Qualifiers Primary Impression: Nausea and vomiting Vomiting type: unspecified Vomiting Intractability: non-intractable Qualified Codes: R11.2 - Nausea with vomiting, unspecified EJROD GOOD APRN Mar 10, 2019 15:20
[2019-03-10 15:44] LABS: BASO # 0.1 x10^3/uL (0.0-0.2); BASO % 1 % (0-3); EOS # 0.5 x10^3/uL (0.0-0.7); EOS % 5 % (0-3); HEMATOCRIT 46.6 % (39.0-53.0); HEMOGLOBIN 15.2 g/dL (13.0-17.5); LYMPH # 3.1 x10^3/uL (1.0-4.8); LYMPH % 33 % (24-48); MEAN CORPUSCULAR HEMOGLOBIN 28 pg (25-35); MEAN CORPUSCULAR HGB CONC 33 g/dL (31-37); MEAN CORPUSCULAR VOLUME 87 fL (79-100); MONO # 1.4 x10^3/uL (0.0-1.1); MONO % 15 % (0-9); NEUT # 4.3 x10^3/uL (1.8-7.7); NEUT % 46 % (31-73); PLATELET COUNT 425 x10^3/uL (140-400); RED BLOOD COUNT 5.34 x10^6/uL (4.30-5.70); RED CELL DISTRIBUTION WIDTH 13.3 % (11.5-14.5); WHITE BLOOD COUNT 9.3 x10^3/uL (4.0-11.0)
--- NOTE | 2019-03-10 15:46 | RAD ---
PORTABLE CHEST 1V 03/10/2019 3:28 PM INDICATION: Weakness COMPARISON: 02/01/2019 TECHNIQUE: Portable frontal view of the chest is provided. FINDINGS: The cardiomediastinal silhouette is similar in appearance. Lungs are clear There are no significant pleural effusions. There is no pulmonary vascular congestion. No pneumothorax. IMPRESSION: There is no acute cardiopulmonary process. Electronically signed by: Mary Gaviria MD (03/10/2019 3:42 PM) [facility]
--- NOTE | 2019-03-10 15:52 | RAD ---
CT HEAD WO CONTRAST Date: 03/10/2019 3:09 PM Clinical Indication: Headache Comparison: None. Technique: 5 mm axial tomographic images were obtained of the head without contrast. These were viewed on brain and bone windows. One or more of the following dose reduction techniques were utilized: Automated exposure control (AEC), Adjustment of mA and/or kV according to patient size, Use of iterative reconstruction technique such as ASiR, CT scan done according to ALARA and image gently/image wisely Findings: The brain parenchyma is normal in attenuation. No intra- or extra-axial mass or fluid collection. No acute hemorrhage. The ventricles are normal in size, shape, and morphology. The dale-white matter junction is normal. The subarachnoid cisterns are patent. The visualized paranasal sinuses are normal. The visualized portions of the orbits and globes are normal. The mastoid air cells are clear. The field technical specialist topogram shows no lytic lesion or fracture. Impression: No acute intracranial process. Electronically signed by: Noe Mccarty MD (03/10/2019 3:49 PM) [id number]
[2019-03-10 15:53] LABS: CALCIUM 9.6 mg/dL (8.5-10.1); GFR 89.6
[2019-03-10 16:06] LABS: ALBUMIN 4.1 g/dL (3.4-5.0); INFLUENZA A PATIENT NEGATIVE (NEGATIVE); INFLUENZA B PATIENT NEGATIVE (NEGATIVE); TOTAL BILIRUBIN 0.4 mg/dL (0.2-1.0); TOTAL PROTEIN 8.3 g/dL (6.4-8.2)
[2019-03-10] MEDS ORDERED: KETOROLAC 30 MG/ML VIAL. IV ONE (16:15)
[2019-03-10 17:31] VITALS: BP 155/84
[2019-03-10] MEDS ORDERED: ONDA4TAB12 PO (17:33)
[2019-03-10] MEDS ORDERED: IBUP-1007 PO (17:33)
== END 2019-03-10 18:13 | disposition home or self-care (01) ==
LOC: ER 14:50
DX: R11.2 Nausea with vomiting, unspecified (principal); R51 Headache; R09.81 Nasal congestion
CPT/HCPCS: 36415; 70450; 71045; 80053; 83690; 85025; 87070; 87804; 87880; 96361; 96374; 96375; 99285; J1885; J2405; J7030

== ENCOUNTER 2020-11-16 16:21 | Emergency (ER) | payer OTHER ==
[~2020-11-16] VITALS: Ht 198.1 cm; Wt 158.0 kg
[~2020-11-16 16:21] MED LIST changes: +IBUP-1007 PO; +MAG30ORA2 PO; +MECL12.582 PO; +PANT40TA77 PO
[2020-11-16] MEDS ORDERED: LIDOCAINE WITH 8.4% SOD BICARB 3 ML DISP.SYRIN. INJ ONE (16:45)
--- NOTE | 2020-11-16 17:49 | PHYS DOC ---
Past Medical History Past Medical History: Other Additional Past Medical Histor: Lumbar Fx with bulging disc, MENINGITIS Past Surgical History: Other Additional Past Surgical Histo: left rotator cuff Smoking Status: Never Smoker Alcohol Use: None Drug Use: None General Adult EDM: Chief Complaint: LACERATION/AVULSION HPI: HPI: Patient is a 30 year old male who presents to the ED today with right hand lacerations. Patient states he was running around with his brother when he accidentally passed his hand through a glass. Patient is right-handed. He is on Plavix for ND last year. Review of Systems: Review of Systems: Constitutional: Denies fever or chills. [] Musculoskeletal: Denies back pain or joint pain. [] Integument: Reports right index finger and right middle finger laceration Neurologic: Denies headache, focal weakness or sensory changes. [] Psychiatric: Denies depression or anxiety. [] Heart Score: C/O Chest Pain: N/A Risk Factors: Risk Factors: DM, Current or recent (<one month) smoker, HTN, HLP, family history of CAD, obesity. Risk Scores: Score 0 - 3: 2.5% MACE over next 6 weeks - Discharge Home Score 4 - 6: 20.3% MACE over next 6 weeks - Admit for Clinical Observation Score 7 - 10: 72.7% MACE over next 6 weeks - Early Invasive Strategies Current Medications: Current Medications Medications (Trade) Dose Ordered Sig/Dinorah Start Time Stop Time Status Last Admin Dose Admin Lidocaine HCl (Buffered Lidocaine 1%) 9 ml 1X ONCE 11/16/20 16:45 11/16/20 16:46 DC 11/16/20 16:30 9 ML Allergies: Allergies: Allergies Coded Allergies Type Severity Reaction Last Updated Verified No Known Drug Allergies 01/22/15 No Physical Exam: PE: Constitutional: Well developed, well nourished, no acute distress, non-toxic appearance. [] Skin: Right index finger mid phalanx with a laceration approximately 1 cm long, right middle finger mid phalanx with a laceration approximately 1.5 cm. There is no obvious tendon involvement. Full range of motion to the right hand and fingers, adequate radial, medial, ulnar sensation to the right hand. Cap refill less than 2 seconds to right fingers. +2 right radial pulse. Back: No tenderness, no CVA tenderness. [] Extremities: No tenderness, no cyanosis, no clubbing, ROM intact, no edema. [] Neurologic: Alert and oriented X 3, normal motor function, normal sensory function, no focal deficits noted. [] Psychologic: Affect normal, judgement normal, mood normal. [] Current Patient Data: Vital Signs: Vital Signs Date Time Temp Pulse Resp B/P (MAP) Pulse Ox O2 Delivery O2 Flow Rate FiO2 11/16/20 16:29 99.0 72 12 172/112 (132) 98 99.0 EKG: EKG: [] Radiology/Procedures: Radiology/Procedures: Laceration/Wound Repair Wound Location: Right index finger and right middle finger Wound's Depth, Shape: Horizontal Wound Length (cm): See assessment documentation Wound Explored: clean Irrigated w/ Saline (ccs): 50 Betadine Prep?: [Yes Anesthesia: 1% of buffered lidocaine Volume Anesthetic (ccs): Total volume 4 mL Wound Repaired With: Right index finger was repaired with 3 interrupted sutures using 4.0 Prolene, right middle finger was repaired with 4 interrupted sutures using 4.0 Prolene Progress : Wound was covered with nonstick dressing Course & Med Decision Making: Course & Med Decision Making Pertinent Labs and Imaging studies reviewed. (See chart for details) This is a 30-year-old male patient presented to the ED today with right index finger right middle finger lacerations. Tetanus up-to-date. Lacerations were closed by me as noted in procedures. Wound care instructions and return precautions provided. Dragon Disclaimer: Dragon Disclaimer: This electronic medical record was generated, in whole or in part, using a voice recognition dictation system. Departure Departure Impression: Primary Impression: Laceration of right index finger Qualified Codes: S61.210A - Laceration without foreign body of right index finger without damage to nail, initial encounter Additional Impression: Laceration of right middle finger Qualified Codes: S61.212A - Laceration without foreign body of right middle finger without damage to nail, initial encounter Disposition: 01 HOME / SELF CARE / HOMELESS Condition: STABLE Referrals: NO PCP (PCP) Follow-up with the ED or the primary care doctor in 7 days for stitches to be removed Patient Instructions: Laceration Care, Adult Additional Instructions: You were evaluated in the emergency room, you have stitches in your right index finger and middle finger. Keep the areas clean and dry. Remove the dressing tomorrow. Apply Neosporin to the area twice a day. You can wash the area with soap and water. Monitor the area for any signs of infection including but not limited to increased redness, warmth, yellow drainage from the areas and return to the ED if they occur. Follow-up with your doctor or the emergency room in 7 days for stitches to be removed KERRI ABREU APRN Nov 16, 2020 17:48
== END 2020-11-16 18:03 | disposition home or self-care (01) ==
LOC: ER 16:21
DX: S61.210A Laceration without foreign body of right index finger without damage to nail, initial encounter (principal); S61.212A Laceration without foreign body of right middle finger without damage to nail, initial encounter; Z79.02 Long term (current) use of antithrombotics/antiplatelets; W25.XXXA Contact with sharp glass, initial encounter; Y93.89 Activity, other specified; Y92.89 Other specified places as the place of occurrence of the external cause; Y99.8 Other external cause status
CPT/HCPCS: 12001; 99283; J3490